=== PATIENT | male | born 1995 | race Caucasian/White ===

== ENCOUNTER 2019-10-09 13:56 | Outpatient (CLI) | payer OTHER ==
--- NOTE | 2019-10-09 16:09 | MRI ---
MR of the left shoulder without contrast INDICATION: Left shoulder pain. Left shoulder injury in May 2019. Patient has numbness in the l eft shoulder since injury. TECHNIQUE: Sagittal T1, axial and coronal PD fat sat, sagittal and coronal T2 fat sat images were obt ained of the left shoulder. COMPARISON: None. FINDINGS: Motion artifact limits image detail. Rotator cuff: Intact. Glenohumeral joint: Articular cartilage is intact. Glenoid labrum: Intact Biceps tendon and biceps anchor: Intact and located. Acromion clavicular joint: normal Subacromial subdeltoid space: No appreciable fluid. Axillary region: No lymphadenopathy. Surrounding shoulder musculature: Normal. No evidence of atrophy or strain. IMPRESSION: 1. No abnormality demonstrated.
== END 2019-10-09 13:57 | disposition home or self-care (01) ==
LOC: SCSMRI 13:56
PROVIDERS: ATTEND Family Medicine
DX: S49.92XD Unspecified injury of left shoulder and upper arm, subsequent encounter (principal); M75.52 Bursitis of left shoulder